=== PATIENT | female | born 1990 | race Caucasian/White ===

== ENCOUNTER → 2017-12-02 | Outpatient (CLI) | payer BC, OTHER ==
--- NOTE | 2017-12-02 22:35 | MR ---
EXAMINATION TYPE: MR brain wo/w con DATE OF EXAM: 12/02/2017 COMPARISON: NONE HISTORY: Double Vision, monocular exotropia per order. TECHNIQUE: Multiplanar, multisequence images of the brain and brainstem is performed without and with IV contras t, utilizing 11 mL intravenous Gadavist . FINDINGS: Diffusion weighted images demonstrate no evidence of a recent infarct or other diffusion ab normality. There is no extra-axial fluid collection or significant white matter signal abnormality. The ventricular system and cisternal spaces are normal in size and appearance. The brain volume is age appropriate. Midline structures demonstrate normal morphology. The craniocervical junction appears within normal limits. Post contrast images demonstrate no abnormal enhancement. The dural venous sinuses appear pa tent. Severe mucosal thickening in dominant sphenoid sinuses present. Remainder paranasal sinuses are clear. Globes are slightly distorted by artifact otherwise are felt unremarkable. Intraconal structu res grossly unremarkable. IMPRESSION: Severe chronic sphenoid sinus disease otherwise unremarkable study. No significant findin g is seen to account for patient's symptoms.
== END | disposition home or self-care (01) ==
LOC: RADMRIMAIN 21:02
PROVIDERS: ATTEND Ophthalmology
DX: H50.111 Monocular exotropia, right eye (principal)
CPT/HCPCS: 70553; A9581

== ENCOUNTER 2019-02-04 07:18 | Day surgery (SDC) | payer OTHER ==
[2019-02-02 13:56] VITALS: BMI 41.9
[~2019-02-04 07:18] MED LIST: LACTATED RINGERS 1,000 ML IV SCH
[2019-02-04 07:51] VITALS: RESP 18; TEMP 97.9
[2019-02-04] MEDS ORDERED: LIDOCAINE 1% 20 ML VIAL (10MG/ML) FOR IV START INTRADERMA ONE (07:51)
[2019-02-04] MEDS ORDERED: PROPOFOL 10 MG/ML 20 ML VIAL IV ONE (08:05)
[2019-02-04] MEDS ORDERED: LIDOCAINE 1% INJ 10MG/ML (20 ML MDV) ONE (08:05)
--- NOTE | 2019-02-04 08:20 | P.OP ---
Date of Procedure: 02/04/19 Preoperative Diagnosis: Gastroesophageal reflux disease Postoperative Diagnosis: Gastroesophageal reflux disease, mild gastritis Procedure(s) Performed: EGD with biopsy Anesthesia: MAC Surgeon: Marie Panda Pathology: other (Antrum, esophagitis) Condition: stable Disposition: PACU Indications for Procedure: The patient presented with epigastric pain and water brash which has not been responsive to medical therapy. Description of Procedure: The patient's taken to the endoscopy suite were gastroscope is passed per mouth to the third and fourth portions of the duodenum. The pharynx is unremarkable. The esophagus is without evidence of esophagitis or mass lesion. There is a little bit of exudate tape material the entirety of the esophagus, this is likely thickened Guru however. She did have some thickest mucus in her pharynx. No evidence of hiatal hernia. The stomach shows low chronic appearing gastritis in the antrum and cold biopsies were obtained. Otherwise the stomach, pylorus, duodenum were without evidence of polyp, mass lesion, other mucosal abnormality. No hiatal hernia and retroflexion of the scope. The scope was then withdrawn into the esophagus and several cold biopsies were obtained. SHe tolerated the procedure without difficulty as taken recovery room in satisfactory condition. We'll call with the report of the biopsies. If there is evidence of reflux esophagitis we'll see about changing her medication. Further recommendations to follow. Plan - Discharge Summary Discharge Rx Participant: Yes New Discharge Prescriptions: No Action No Known Home Medications Discharge Medication List No Known Home Medications 07/03/14 [History] Discharge Disposition: HOME SELF-CARE
[2019-02-04 08:36] VITALS: BP 108/77; PULSE 71
== END 2019-02-04 09:06 | disposition home or self-care (01) ==
LOC: ORWHC2ENDO 07:18
PROVIDERS: ATTEND Surgery
DX: K21.0 Gastro-esophageal reflux disease with esophagitis (principal); K31.9 Disease of stomach and duodenum, unspecified; K29.70 Gastritis, unspecified, without bleeding; K58.9 Irritable bowel syndrome, unspecified
CPT/HCPCS: 81025; 88305; 43239; J2001; J2704

== ENCOUNTER 2019-03-28 21:28 | Emergency (ER) | payer OTHER ==
[2019-03-28 22:43] LABS: Appearance,Urine Clear (Clear); Bilirubin,Urine Negative (Negative); Blood,Urine Moderate (Negative); Color,Urine Yellow; Glucose,Urine (UA) Negative (Negative); Ketones,Urine Negative (Negative); Leukocyte Esterase,Urine Negative (Negative); Mucus,Urine Occasional /hpf; Nitrite,Urine Negative (Negative); PH, Urine 5.5 (5.0-8.0); Protein,Urine Trace (Negative); RBC,Urine 57 /hpf (0-5); Specific Gravity,Urine 1.029 (1.001-1.035); Squamous Epithelial Cell,Urine 1 /hpf (0-4); Urobilinogen,Urine <2.0 mg/dL (<2.0)
--- NOTE | 2019-03-28 23:20 | ED ---
Abdominal Pain HPI - General Chief Complaint: Abdominal Pain Stated Complaint: Vaginal Bleeding-poss miscarriage Time Seen by Provider: 03/28/19 23:19 Source: patient Mode of arrival: ambulatory Limitations: no limitations - History of Present Illness Initial Comments: Belkis is a 28-year-old female who presents to the emergency department today for evaluation of heavy vaginal bleeding. Patient reports that she usually gets her menses every 4 weeks it's very light last only 2-3 days. She reports she began having her menses yesterday however today she had 2 hours of passing very large clots, patient reports she was passing clots the size of a silver dollar as well as multiple smaller clots. Patient had not missed menses and did not believe she is but given the size of these clots was concerned she may be having a miscarriage that she came to the ER for evaluation. Upon arrival she reports the bleeding has slowed significantly she is only having mild cramping. - Related Data Home Medications Medication Instructions Recorded Confirmed No Known Home Medications 07/03/14 03/28/19 Allergies Allergy/AdvReac Type Severity Reaction Status Date / Time No Known Allergies Allergy Verified 03/28/19 23:11 Review of Systems ROS Statement: Those systems with pertinent positive or pertinent negative responses have been documented in the HPI. ROS Other: All systems not noted in ROS Statement are negative. Past Medical History Past Medical History: No Reported History Additional Past Medical History / Comment(s): stomach ulcer, History of Any Multi-Drug Resistant Organisms: None Reported Past Surgical History: No Surgical Hx Reported Additional Past Surgical History / Comment(s): EGD, Past Anesthesia/Blood Transfusion Reactions: No Reported Reaction Past Psychological History: No Psychological Hx Reported Smoking Status: Never smoker Past Alcohol Use History: Rare Past Drug Use History: None Reported - Past Family History Mother History Unknown: Yes General Exam - General Exam Comments Initial Comments: Physical Exam GENERAL: Patient is well-developed and well-nourished. Patient is nontoxic and well- hydrated and is in no distress. HENT: Normocephalic, Atraumatic. EYES: PERRL, EOMI PULMONARY: Unlabored respirations. No audible rales rhonchi or wheezing was noted. CARDIOVASCULAR: There is a regular rate and rhythm without any murmurs gallops or rubs. ABDOMEN: Soft and nontender with normal bowel sounds. SKIN: Skin is clear with no lesions or rashes and otherwise unremarkable. : She declined a pelvic exam NEUROLOGIC: Patient is alert and oriented x3. Moving all extremities spontaneously MUSCULOSKELETAL: Normal extremities with adequate strength and full range of motion. No lower extremity swelling or edema. No calf tenderness. PSYCHIATRIC: Normal psychiatric evaluation Limitations: no limitations Course Vital Signs 03/28/19 03/28/19 21:58 23:38 Temperature 98 F 97 F L Pulse Rate 61 78 Respiratory 16 18 Rate Blood Pressure 137/93 132/72 O2 Sat by Pulse 100 97 Oximetry Medical Decision Making - Medical Decision Making Patient was seen and evaluated history is obtained from the patient is an 28-year-old female currently not on any control is having a very heavy period was concerned may be a miscarriage urine is negative. These results were discussed with patient I advised her that with a negative urine is unlikely that she is miscarrying actively more likely that she she' s having a heavy period. I did offer to obtain serum hCG and perform pelvic exam patient declined she felt reassured was comfortable with the plan for discharge home at this time. - Lab Data Lab Results 03/28/19 03/28/19 Range/Units 22:31 22:31 Urine Color Yellow Urine Appearance Clear (Clear) Urine pH 5.5 (5.0-8.0) Ur Specific [place] 1.029 (1.001-1.035) Urine Protein Trace H (Negative) Urine Glucose (UA) Negative (Negative) Urine Ketones Negative (Negative) Urine Blood Moderate H (Negative) Urine Nitrite Negative (Negative) Urine Bilirubin Negative (Negative) Urine Urobilinogen <2.0 (<2.0) mg/dL Ur Leukocyte Esterase Negative (Negative) Urine RBC 57 H (0-5) /hpf Urine WBC 3 (0-5) /hpf Ur Squamous Epith Cells 1 (0-4) /hpf Urine Mucus Occasional H (None) /hpf Urine HCG, Qual Not Detected (Not Detectd) Disposition Clinical Impression: Menstruation Disposition: HOME SELF-CARE Condition: Stable Instructions (If sedation given, give patient instructions): Menorrhagia (ED) Is patient prescribed a controlled substance at d/c from ED?: No Referrals: Jama Cordero MD [Primary Care Provider] - 1-2 days
[2019-03-28 23:41] VITALS: BP 132/72; PULSE 78; RESP 18; TEMP 97
== END 2019-03-28 23:41 | disposition home or self-care (01) ==
LOC: EC 21:28
DX: N92.0 Excessive and frequent menstruation with regular cycle (principal); Z87.19 Personal history of other diseases of the digestive system; Z53.29 Procedure and treatment not carried out because of patient's decision for other reasons
CPT/HCPCS: 81001; 81025; 99283

== ENCOUNTER → 2020-08-30 | Outpatient (CLI) | payer OTHER ==
--- NOTE | 2020-08-30 10:24 | US ---
EXAMINATION TYPE: US thyroid st tissue head/neck DATE OF EXAM: 08/30/2020 COMPARISON: NONE CLINICAL HISTORY: E04.1 thyroid nodule. GLAND SIZE: Right Lobe: cm Overall Parenchyma: Left Lobe: cm Overall Parenchyma: Isthmus Thickness: cm NODULES RIGHT: # of nodules measured on right: 1. X x cm nodule at the pole with margins; . This nodule is and shows . Prior size: x x cm 2. X x cm nodule at the pole with margins; . This nodule is and shows . Prior size: x x cm 3. X x cm nodule at the pole with margins; . This nodule is and shows . Prior size: x x cm 4. X x cm nodule at the pole with margins; . This nodule is and shows . Prior size: x x cm LEFT: # of nodules measured on left: 1. X x cm nodule at the pole with margins; . This nodule is and shows . Prior size: x x cm 2. X x cm nodule at the pole with margins; . This nodule is and shows . Prior size: x x cm 3. X x cm nodule at the pole with margins; . This nodule is and shows . Prior size: x x cm 4. X x cm nodule at the pole with margins; . This nodule is and shows . Prior size: x x cm ISTHMUS: # of nodules measured in the isthmus: 1. X x cm nodule at the pole with margins; . This nodule is and shows . Prior size: x x cm Bilateral neck scanned, no evidence of lymphadenopathy. IMPRESSION: EXAMINATION TYPE: US thyroid st tissue head/neck DATE OF EXAM: 08/30/2020 COMPARISON: NONE CLINICAL HISTORY: E04.1 thyroid nodule. GLAND SIZE: Right Lobe: 5.9 x 2.1 x 2.0 cm Overall Parenchyma: homogenous Left Lobe: 5.6 x 1.7 x 1.9 cm Overall Parenchyma: homogeneous Isthmus Thickness: 0.4 cm NODULES RIGHT: # of nodules measured on right: 2 1. 1.8 X 1.2 x 1.3 cm isoechoic/cystic mixed nodule at the mid pole with well-defined margins. Thi s nodule is wider than tall and shows intranodular vascularity. No prior 2. 0.8 X 0.5 x 0.8 cm isoechoic solid nodule at the lower pole with well-defined margins. This nodu le is wider than tall and shows intranodular vascularity. No prior LEFT: # of nodules measured on left: 1. 0.7 X 0.5 x 0.6 cm hypoechoic solid nodule at the mid pole with well-defined margins. This nodu le is wider than tall and shows no intranodular vascularity. No prior ISTHMUS: # of nodules measured in the isthmus: 0 Bilateral neck scanned, no evidence of lymphadenopathy. IMPRESSION: Dominant nodule right lobe of thyroid gland TR 3, mildly suspicious. Left thyroid nodule and smaller right thyroid nodule are TR 4, follow-up recommended in one year all nodules.
== END | disposition home or self-care (01) ==
LOC: RADUSWWP 07:32
PROVIDERS: ATTEND Family Medicine
DX: E04.1 Nontoxic single thyroid nodule (principal)
CPT/HCPCS: 76536

== ENCOUNTER 2021-01-24 18:19 | Emergency (ER) | payer OTHER ==
--- NOTE | 2021-01-24 21:23 | XR ---
EXAMINATION TYPE: XR chest 2V DATE OF EXAM: 01/24/2021 COMPARISON: NONE HISTORY: Chest pain. TECHNIQUE: Frontal and lateral views of the chest are obtained. FINDINGS: There is no focal air space opacity, pleural effusion, or pneumothorax seen. The cardiac silhouette size is within normal limits. The osseous structures are intact. IMPRESSION: No acute cardiopulmonary process.
--- NOTE | 2021-01-24 21:28 | ED ---
SOB HPI - General Chief Complaint: Shortness of Breath Stated Complaint: Covid+/chest pain/sob/headache/fever Time Seen by Provider: 01/24/21 18:25 Source: patient Mode of arrival: wheelchair Limitations: no limitations - History of Present Illness Initial Comments: 30-year-old female who presents emergency Department with reported shortness of breath and chest pain. Patient did test positive for Covid on the 6th. States that she's had fevers, chills and body aches. Because of her worsening shortness of breath she presents emergency room. Has not taken any medications at home for her symptoms. Denies previous history of pulmonary or cardiac disease. No concern for . No other alleviating, precipitating or modifying factors - Related Data Home Medications Medication Instructions Recorded Confirmed No Known Home Medications 07/03/14 03/28/19 Allergies Allergy/AdvReac Type Severity Reaction Status Date / Time No Known Allergies Allergy Verified 01/24/21 18:23 Review of Systems ROS Statement: Those systems with pertinent positive or pertinent negative responses have been documented in the HPI. ROS Other: All systems not noted in ROS Statement are negative. Past Medical History Past Medical History: No Reported History Additional Past Medical History / Comment(s): stomach ulcer, History of Any Multi-Drug Resistant Organisms: None Reported Past Surgical History: No Surgical Hx Reported Additional Past Surgical History / Comment(s): EGD, Past Anesthesia/Blood Transfusion Reactions: No Reported Reaction Past Psychological History: No Psychological Hx Reported Smoking Status: Never smoker Past Alcohol Use History: None Reported Past Drug Use History: None Reported - Past Family History Mother History Unknown: Yes General Exam Limitations: no limitations General appearance: alert, in no apparent distress Head exam: Present: atraumatic, normocephalic, normal inspection Eye exam: Present: normal appearance, PERRL, EOMI. Absent: scleral icterus, conjunctival injection, periorbital swelling ENT exam: Present: normal exam, mucous membranes moist Neck exam: Present: normal inspection. Absent: tenderness, meningismus, lymphadenopathy Respiratory exam: Present: normal lung sounds bilaterally. Absent: respiratory distress, wheezes, rales, rhonchi, stridor Cardiovascular Exam: Present: regular rate, normal rhythm, normal heart sounds. Absent: systolic murmur, diastolic murmur, rubs, gallop, clicks GI/Abdominal exam: Present: soft, normal bowel sounds. Absent: distended, tenderness, guarding, rebound, rigid Extremities exam: Present: normal inspection, full ROM, normal capillary refill. Absent: tenderness, pedal edema, joint swelling, calf tenderness Back exam: Present: normal inspection Neurological exam: Present: alert, oriented X3, CN II-XII intact Psychiatric exam: Present: normal affect, normal mood Skin exam: Present: warm, dry, intact, normal color. Absent: rash Course Vital Signs 01/24/21 01/24/21 01/24/21 18:23 21:20 22:00 Temperature 97.8 F Pulse Rate 89 Respiratory 18 20 18 Rate Blood Pressure 131/88 O2 Sat by Pulse 100 98 Oximetry 01/24/21 01/24/21 23:00 23:59 Temperature 98.0 F Pulse Rate 86 Respiratory 20 18 Rate Blood Pressure 128/78 O2 Sat by Pulse 100 98 Oximetry Medical Decision Making - Medical Decision Making Upon arrival patient was placed into room 29. Thorough history and physical exam is performed. Patient is maintaining saturations of 100% without increased work of breathing. 12-lead EKG was performed. Chest x-ray was also performed which inserts no acute cardio pulmonary process. Patient does qualify for antibody treatment. She was given an infusion and will be discharged home. Instructed to take Motrin and Tylenol for pain. Quarantine until her symptoms improve. Patient was discharged in stable condition - EKG Data EKG Comments: EKG demonstrates normal sinus rhythm with a ventricular rate of 76. AL interval 166. QRS 100. QTC of 443. No acute ST segment elevations or depressions concerning for ischemic changes. No signs of Uzyyd-Ytemlkcdm-Gp[place] White or Brugada Disposition Clinical Impression: COVID-19 Disposition: HOME SELF-CARE Condition: Stable Instructions (If sedation given, give patient instructions): Coronavirus Disease 2019 (COVID-19) Additional Instructions: You have been diagnosed with Covid. Please quarantine until your symptoms improve. You were given antibody infusion in the emergency room. Continue to take Motrin and Tylenol alternating for fever and pain control. Return to the emergency department should her pulse ox fall below 90% Is patient prescribed a controlled substance at d/c from ED?: No Referrals: Jama Cordero MD [Primary Care Provider] - 1-2 days Time of Disposition: 21:28
[2021-01-24] MEDS ORDERED: BAMLANIVIMAB (EUA) 700 MG, ETESEVIMAB (EUA) 1,400 MG in SODIUM CHLORIDE 0.9% 50 ML IVPB ONE (22:00)
[2021-01-24] MEDS ORDERED: SODIUM CHLORIDE 0.9% 50 ML IVPB ONE (22:30)
[2021-01-25 00:01] VITALS: BP 128/78; PULSE 86; RESP 18; TEMP 98
== END 2021-01-24 23:59 | disposition home or self-care (01) ==
LOC: EC 18:19
DX: U07.1 COVID-19 (principal)
CPT/HCPCS: 71046; 93005; 96365; 99285

== ENCOUNTER → 2022-08-13 | Outpatient (CLI) | payer OTHER ==
--- NOTE | 2022-08-14 17:04 | NM ---
EXAMINATION TYPE: NM thyroid image w uptake DATE OF EXAM: 08/14/2022 COMPARISON: Thyroid ultrasound 08/30/2020 HISTORY: 32-year-old female E04.2 multiple thyroid nodules, Z86.39 TECHNIQUE: Thyroid iodine uptake is calculated and images performed after the oral administration of 320 uCi 1-123 Capsule. FINDINGS: There is a nodule with increased tracer activity within the medial aspect of the mid to lower right t hyroid lobe. Otherwise, the remainder of the gland shows normal distribution. The 4 hour iodine uptake is calculated at 16.6% (normal range 8-14%). The 24-hour iodine uptake is calculated at 33.0% (normal range 15-35%). IMPRESSION: Possible hyperfunctioning adenoma medial aspect of the mid to lower right thyroid lobe. Correlate wit h TFTs and patient's symptoms. The 4 hour iodine uptake is mildly elevated. The 24-hour iodine uptake is borderline elevated.
== END | disposition home or self-care (01) ==
LOC: RADNMMAIN 08:23
PROVIDERS: ATTEND Family Medicine
DX: R94.6 Abnormal results of thyroid function studies (principal); Z86.39 Personal history of other endocrine, nutritional and metabolic disease
CPT/HCPCS: 78014; A9516

== ENCOUNTER 2023-10-28 06:40 | Emergency (ER) | payer OTHER ==
[2023-10-28 07:05] VITALS: BP 147/94; PULSE 92; RESP 20; TEMP 97.7
[2023-10-28] MEDS ORDERED: BACITRACIN OINT 1 EACH PACKET TOPICAL ONE (07:31)
--- NOTE | 2023-10-28 07:32 | ED ---
Wound/Laceration HPI - General Chief Complaint: Wound/Laceration Stated Complaint: Finger injury Time Seen by Provider: 10/28/23 07:06 Source: patient, RN notes reviewed Mode of arrival: ambulatory Limitations: no limitations - History of Present Illness Initial Comments: 33-year-old female presents emergency Department chief complaint of laceration to her left index finger. Patient states she was cutting a cucumber this morning states that she cut her finger. Her tetanus is up-to-date. She offers no other complaints. - Related Data Home Medications Medication Instructions Recorded Confirmed No Known Home Medications 07/03/14 03/28/19 Allergies Allergy/AdvReac Type Severity Reaction Status Date / Time No Known Allergies Allergy Verified 10/28/23 07:04 Review of Systems ROS Statement: Those systems with pertinent positive or pertinent negative responses have been documented in the HPI. ROS Other: All systems not noted in ROS Statement are negative. Past Medical History Past Medical History: No Reported History Additional Past Medical History / Comment(s): stomach ulcer, IBS History of Any Multi-Drug Resistant Organisms: None Reported Past Surgical History: No Surgical Hx Reported Additional Past Surgical History / Comment(s): EGD, Past Anesthesia/Blood Transfusion Reactions: No Reported Reaction Past Psychological History: Anxiety, Depression Smoking Status: Never smoker Past Alcohol Use History: Occasional Past Drug Use History: Marijuana - Past Family History Mother History Unknown: Yes General Exam Limitations: no limitations General appearance: alert, in no apparent distress Head exam: Present: atraumatic, normocephalic, normal inspection Respiratory exam: Present: normal lung sounds bilaterally. Absent: respiratory distress, wheezes, rales, rhonchi, stridor Cardiovascular Exam: Present: regular rate, normal rhythm, normal heart sounds. Absent: systolic murmur, diastolic murmur, rubs, gallop, clicks Extremities exam: Present: other (Left hand second digit distal tip there is a 3 cm irregular laceration full range of motion full-strength) Course Vital Signs 10/28/23 07:03 Temperature 97.7 F Pulse Rate 92 Respiratory 20 Rate Blood Pressure 147/94 O2 Sat by Pulse 95 Oximetry Procedures - Laceration Laceration #1 Consent Obtained: verbal consent Indication: laceration Site: hand (Hand second digit) Size (cm): 3 Description: irregular Anesthetic Used: lidocaine 1%, without epi Anesthesia Technique: local infiltration Amount (mls): 2 Pre-repair: wound explored, irrigated extensively, deep structures intact Type of Sutures: nylon Size of Sutures: 5-0 Number of Sutures: 4 Technique: simple, interrupted Patient Tolerated Procedure: well, no complications Medical Decision Making - Medical Decision Making Was pt. sent in by a medical professional or institution (LOREN Hansen, [employer]OT[employer] PAINTER HELPER, urgent care, hospital, or residential...) When possible be specific @ -No Did you speak to anyone other than the patient for history (EMS, parent, family, police, friend...)? What history was obtained from this source @ -No Did you review nursing and triage notes (agree or disagree)? Why? @ -I reviewed and agree with nursing and triage notes Were old charts reviewed (outside hosp., previous admission, EMS record, old EKG, old radiological studies, urgent care reports/EKG's, residential records)? Report findings @ -No old charts were reviewed Differential Diagnosis (chest pain, altered mental status, abdominal pain women, abdominal pain men, vaginal bleeding, weakness, fever, dyspnea, syncope, headache, dizziness, GI bleed, back pain, seizure, CVA, palpatations, mental health, musculoskeletal)? @ -[Finger laceration, skin avulsion EKG interpreted by me (3pts min.). @ -None X-rays interpreted by me (1pt min.). @ -None done CT interpreted by me (1pt min.). @ -None done U/S interpreted by me (1pt. min.). @ -None done What testing was considered but not performed or refused? (CT, X-rays, U/S, labs)? Why? @ -None What meds were considered but not given or refused? Why? @ -None Did you discuss the management of the patient with other professionals (professionals i.e. LOREN Hansen, AUTOMOTIVE PAINTER HELPER, lab, RT, psych nurse, dialysis social worker, finance vice president, teacher, security officer, case preparer and liner)? Give summary @ -No Was smoking cessation discussed for >3mins.? @ -No Was critical care preformed (if so, how long)? @ -No Were there social determinants of health that impacted care today? How? (Homelessness, low income, unemployed, alcoholism, drug addiction, transportation, low edu. Level, literacy, decrease access to med. care, shelter, rehab)? @ -No Was there de-escalation of care discussed even if they declined (Discuss DNR or withdrawal of care, Hospice)? DNR status @ -No What co-morbidities impacted this encounter? (DM, HTN, Smoking, COPD, CAD, Cancer, CVA, ARF, Chemo, Hep., AIDS, mental health diagnosis, sleep apnea, morbid obesity)? @ -None Was patient admitted / discharged? Hospital course, mention meds given and route, prescriptions, significant lab abnormalities, going to OR and other pertinent info. @ -Discharges sutures were placed, patient patient has no tendon injury patient's full range of motion will be discharged with wound care instructions Undiagnosed new problem with uncertain prognosis? @ -No Drug Therapy requiring intensive monitoring for toxicity (Heparin, Nitro, Insulin, Cardizem)? @ -No Were any procedures done? @ -Suturing Diagnosis/symptom? @ -Finger laceration Acute, or Chronic, or Acute on Chronic? @ -Acute Uncomplicated (without systemic symptoms) or Complicated (systemic symptoms)? @ -[Uncomplicated Side effects of treatment? @ -No Exacerbation, Progression, or Severe Exacerbation? @ -No Poses a threat to life or bodily function? How? (Chest pain, [place], [place], pneumonia, PE, COPD, DKA, ARF, appy, cholecystitis, CVA, Diverticulitis, Homicidal, Suicidal, threat to staff... and all critical care pts) @ -No Disposition Clinical Impression: Laceration of finger, left Disposition: HOME SELF-CARE Condition: Stable Instructions (If sedation given, give patient instructions): Care For Your Stit ches (ED), Finger Laceration (ED) Additional Instructions: Have sutures removed in 10 days. Please return to the Emergency Department if symptoms worsen or any other concerns. Is patient prescribed a controlled substance at d/c from ED?: No Referrals: Ariella Gomez DO [Primary Care Provider] - 1-2 days Time of Disposition: 07:32
== END 2023-10-28 07:55 | disposition home or self-care (01) ==
LOC: EC 06:40
DX: S61.211A Laceration without foreign body of left index finger without damage to nail, initial encounter (principal); F12.90 Cannabis use, unspecified, uncomplicated; Z86.59 Personal history of other mental and behavioral disorders; W26.8XXA Contact with other sharp object(s), not elsewhere classified, initial encounter
CPT/HCPCS: 12002; 99282

== ENCOUNTER → 2024-02-10 | Outpatient (CLI) | payer MEDICAID ==
--- NOTE | 2024-02-21 11:04 | MR ---
EXAMINATION TYPE: MR knee RT wo con DATE OF EXAM: 02/10/2024 COMPARISON: None HISTORY: Right knee pain x10 years but worse in last month TECHNIQUE: Multiplanar, multisequence imaging of the right knee is performed without IV contrast. FINDINGS: MEDIAL MENISCUS: Anterior and posterior horns are intact without tear. LATERAL MENISCUS: Anterior and posterior horns are intact without tear. CRUCIATE LIGAMENTS: The anterior and posterior cruciate ligaments are intact and unremarkable. COLLATERAL LIGAMENTS: The medial collateral ligament and lateral collateral ligament complex are inta ct and unremarkable. EXTENSOR MECHANISM: Visualized quadriceps and patellar tendons are intact. EFFUSION: No significant suprapatellar joint effusion. POPLITEAL CYST: No popliteal/sawant cyst. TRICOMPARTMENT SPACES: Intact CARTILAGE: Intact BONE MARROW SIGNAL: No focal abnormal marrow signal is appreciated. OTHER: No additional significant abnormality is appreciated. IMPRESSION: No internal derangement identified.
== END | disposition home or self-care (01) ==
LOC: RADMRIMAIN 17:03
PROVIDERS: ATTEND Orthopaedic Surgery
DX: M25.561 Pain in right knee (principal)

== ENCOUNTER 2024-04-28 09:30 | Emergency (ER) | payer MEDICAID ==
[2024-04-28 09:37] VITALS: TEMP 97.9
--- NOTE | 2024-04-28 10:19 | ED ---
Chest Pain HPI - General Chief Complaint: Chest Pain Stated Complaint: Chest Pain Time Seen by Provider: 04/28/24 10:05 Source: patient, RN notes reviewed Mode of arrival: wheelchair Limitations: no limitations - History of Present Illness Initial Comments: 33-year-old female with no significant past medical history presenting with chest pain x 2 hours. States she had just gotten to work this morning when she turned her head and suddenly felt a sharp pain from the left side of her neck into her chest. Since then, she reports feeling sharp substernal pain radiating into her neck that is worse with exertion. She has not had a similar pain in the past. Denies any cardiac or pulmonary conditions. She does admit a mild headache this morning however denies any shortness of breath, fever, chills, cough. - Related Data Home Medications Medication Instructions Recorded Confirmed Ibuprofen [Motrin Ib] 800 mg PO Q8H PRN 04/28/24 04/28/24 Previous Rx's Medication Instructions Recorded methocarbamoL [Robaxin] 500 mg PO TID PRN #15 tab 04/28/24 Allergies Allergy/AdvReac Type Severity Reaction Status Date / Time No Known Allergies Allergy Verified 04/28/24 12:00 Review of Systems ROS Statement: Those systems with pertinent positive or pertinent negative responses have been documented in the HPI. ROS Other: All systems not noted in ROS Statement are negative. EKG Findings - EKG Results: EKG: interpreted by ERMD (EKG reveals sinus bradycardia with no ST changes. Ventricular rate 56 bpm, KS interval 173, QRS duration 105, QT/QTc 393/386) Past Medical History Past Medical History: No Reported History Additional Past Medical History / Comment(s): stomach ulcer, IBS History of Any Multi-Drug Resistant Organisms: None Reported Past Surgical History: No Surgical Hx Reported Additional Past Surgical History / Comment(s): EGD, Past Anesthesia/Blood Transfusion Reactions: No Reported Reaction Past Psychological History: Anxiety, Depression Smoking Status: Never smoker Past Alcohol Use History: Occasional Past Drug Use History: Marijuana - Past Family History Mother History Unknown: Yes General Exam Limitations: no limitations General appearance: alert, in no apparent distress Head exam: Present: atraumatic, normocephalic, normal inspection Eye exam: Present: normal appearance, PERRL, EOMI. Absent: scleral icterus, conjunctival injection, periorbital swelling Neck exam: Present: normal inspection. Absent: tenderness, meningismus, lymphadenopathy Respiratory exam: Present: normal lung sounds bilaterally. Absent: respiratory distress, wheezes, rales, rhonchi, stridor, chest wall tenderness Cardiovascular Exam: Present: regular rate, normal rhythm, normal heart sounds. Absent: systolic murmur, diastolic murmur, rubs, gallop, clicks GI/Abdominal exam: Present: soft, normal bowel sounds. Absent: distended, tenderness, guarding, rebound, rigid Extremities exam: Present: normal inspection Neurological exam: Present: alert, oriented X3 Psychiatric exam: Present: normal affect, normal mood Skin exam: Present: warm, dry, intact, normal color. Absent: rash Course Vital Signs 04/28/24 04/28/24 04/28/24 09:35 10:20 11:36 Temperature 97.9 F Pulse Rate 76 64 67 Respiratory 16 16 18 Rate Blood Pressure 140/110 128/71 108/61 O2 Sat by Pulse 99 98 99 Oximetry Chest Pain MDM - MDM Was pt. sent in by a medical professional or institution (, PA, CHIROPRACTOR ASSISTANT, urgent care, hospital, or senior care...) When possible be specific @ -No Did you speak to anyone other than the patient for history (EMS, parent, family, police, friend...)? What history was obtained from this source @ -No Did you review nursing and triage notes (agree or disagree)? Why? @ -I reviewed and agree with nursing and triage notes Were old charts reviewed (outside hosp., previous admission, EMS record, old EKG, old radiological studies, urgent care reports/EKG's, senior care records)? Report findings @ -No old charts were reviewed Differential Diagnosis (chest pain, altered mental status, abdominal pain women, abdominal pain men, vaginal bleeding, weakness, fever, dyspnea, syncope, headache, dizziness, GI bleed, back pain, seizure, CVA, palpatations, mental health, musculoskeletal)? @ -Differential Chest Pain: Stable Angina, Unstable Angina, STEMI, NSTEMI Aortic Dissection, Pneumothorax, Musculoskeletal, Esophageal Spasm GERD, Cholecystitis, Pancreatitis, Zoster, this is not meant to be an all-inclusive list. EKG interpreted by me (3pts min.). @ -As above X-rays interpreted by me (1pt min.). @ -Chest x-ray reveals no acute process CT interpreted by me (1pt min.). @ -None done U/S interpreted by me (1pt. min.). @ -None done What testing was considered but not performed or refused? (CT, X-rays, U/S, labs)? Why? @ -None What meds were considered but not given or refused? Why? @ -Offered Norflex however patient declined Did you discuss the management of the patient with other professionals (professionals i.e. , PA, CHIROPRACTOR ASSISTANT, lab, RT, psych nurse, neonatal social worker, archivist political history, teacher, grants officer, binder caser)? Give summary @ -No Was smoking cessation discussed for >3mins.? @ -No Was critical care preformed (if so, how long)? @ -No Were there social determinants of health that impacted care today? How? (Homelessness, low income, unemployed, alcoholism, drug addiction, transportation, low edu. Level, literacy, decrease access to med. care, prison, rehab)? @ -No Was there de-escalation of care discussed even if they declined (Discuss DNR or withdrawal of care, Hospice)? DNR status @ -No What co-morbidities impacted this encounter? (DM, HTN, Smoking, COPD, CAD, Cancer, CVA, ARF, Chemo, Hep., AIDS, mental health diagnosis, sleep apnea, morbid obesity)? @ -None Was patient admitted / discharged? Hospital course, mention meds given and route, prescriptions, significant lab abnormalities, going to OR and other pertinent info. @ -Patient was discharged. Patient was seen and evaluated for chest pain x 2 hours with radiation to shoulder and neck. Pain began when patient sharply rotated her neck. Denies any cardiac history or significant medical conditions. Vitals and physical examination is unremarkable. Patient declined analgesics in ER. EKG reveals sinus bradycardia with no ST changes. Chest x-ray reveals no acute process. Labs including CBC, CMP, and troponin are unremarkable besides mildly elevated BUN of 23. Discussed with patient there are no signs of emergent etiology causing symptoms today and based on presentation, symptoms are likely due to neck muscle strain. Strict return parameters discussed with patient and she shows understanding and agrees with plan. Prescribed Robaxin. Case discussed with my attending Dr. Johnosn. Patient discharged in stable condition. Undiagnosed new problem with uncertain prognosis? @ -No Drug Therapy requiring intensive monitoring for toxicity (Heparin, Nitro, Insulin, Cardizem)? @ -No Were any procedures done? @ -No Diagnosis/symptom? @ -Neck strain Acute, or Chronic, or Acute on Chronic? @ -Acute Uncomplicated (without systemic symptoms) or Complicated (systemic symptoms)? @ -Uncomplicated Side effects of treatment? @ -No Exacerbation, Progression, or Severe Exacerbation? @ -No Poses a threat to life or bodily function? How? (Chest pain, [place], [place], pneumonia, PE, COPD, DKA, ARF, appy, cholecystitis, CVA, Diverticulitis, Homicidal, Suicidal, threat to staff... and all critical care pts) @ -Unlikely at this time Disposition Clinical Impression: Acute strain of neck muscle, Chest pain Disposition: HOME SELF-CARE Condition: Stable Instructions (If sedation given, give patient instructions): Cervical Strain (ED) Additional Instructions: Take Robaxin as needed for pain. Please return to the Emergency Department if symptoms worsen or any other concerns. Prescriptions: methocarbamoL [Robaxin] 500 mg PO TID PRN #15 tab PRN Reason: muscle spasms Is patient prescribed a controlled substance at d/c from ED?: No Referrals: Ariella Gomez DO [Primary Care Provider] - 1-2 days Time of Disposition: 12:10
[2024-04-28 11:01] LABS: Basophils % (A) 1 %; Eosinophils # (A) 0.2 k/uL (0-0.7); Eosinophils % (A) 3 %; HCT 39.9 % (34.0-46.0); HGB 13.2 gm/dL (11.4-16.0); Lymphocytes # (A) 1.8 k/uL (1.0-4.8); Lymphocytes % (A) 26 %; MCHC 33.2 g/dL (31.0-37.0); MCV 84.5 fL (80.0-100.0); Mean Platelet Volume 9.8; Monocytes # (A) 0.3 k/uL (0-1.0); Monocytes % (A) 4 %; Neutrophils # (A) 4.7 k/uL (1.3-7.7); Neutrophils % (A) 66 %; Platelet Count 234 k/uL (150-450); RBC 4.73 m/uL (3.80-5.40); RDW 13.1 % (11.5-15.5); WBC 7.1 k/uL (3.8-10.6)
[2024-04-28 11:08] LABS: ALT 18 U/L (4-34); AST 20 U/L (14-36); African American GFR (CKD) >90 (>60 ml/min/1.73 sqM); Albumin 4.3 g/dL (3.5-5.0); Alkaline Phosphatase 62 U/L (38-126); Anion Gap 8 mmol/L; Blood Urea Nitrogen 23 mg/dL (7-17); Calcium 9.2 mg/dL (8.4-10.2); Carbon Dioxide 25 mmol/L (22-30); Chloride 106 mmol/L (98-107); Glucose 94 mg/dL (74-99); Non-African American GFR(CKD) >90 (>60 ml/min/1.73 sqM); Potassium 4.1 mmol/L (3.5-5.1); Sodium 139 mmol/L (137-145); Total Bilirubin 0.4 mg/dL (0.2-1.3); Total Protein 7.1 g/dL (6.3-8.2)
--- NOTE | 2024-04-28 11:57 | XR ---
EXAMINATION TYPE: XR chest 2V DATE OF EXAM: 04/28/2024 COMPARISON: [id number] INDICATION: Chest pain TECHNIQUE: Frontal and lateral views of the chest are obtained. FINDINGS: The heart size is normal. The pulmonary vasculature is normal. The lungs are clear. IMPRESSION: 1. No acute pulmonary process.
[2024-04-28 12:29] VITALS: BP 121/77; PULSE 58; RESP 16
== END 2024-04-28 12:36 | disposition home or self-care (01) ==
LOC: EC 09:30
DX: S16.1XXA Strain of muscle, fascia and tendon at neck level, initial encounter (principal); R07.89 Other chest pain; R79.89 Other specified abnormal findings of blood chemistry; R00.1 Bradycardia, unspecified; X50.9XXA Other and unspecified overexertion or strenuous movements or postures, initial encounter; Y99.0 Civilian activity done for income or pay
CPT/HCPCS: 36415; 71046; 80053; 84484; 85025; 93005; 99285